=== PATIENT | female | born 1975 | race Caucasian/White ===

== ENCOUNTER 2021-09-20 05:55 | Day surgery (SDC) | payer MEDICAID ==
[~2021-09-20] VITALS: Ht 154.9 cm; Wt 58.3 kg
[2021-09-20 06:20] LABS: HCG,QUAL RESULT NEGATIVE (NEGATIVE)
[2021-09-20] MEDS ORDERED: MEPERIDINE 100 MG INJ. 100 MG/ML VIAL ONE (07:18)
[2021-09-20] MEDS ORDERED: MIDAZOLAM HCL 5 MG/5 ML VIAL ONE (07:18)
[2021-09-20 13:08] VITALS: BP_SYST 112
== END 2021-09-20 10:50 | disposition home or self-care (01) ==
LOC: SDS 05:55 → SMU 05:55 → SDS 10:50
PROVIDERS: ATTEND Internal Medicine
DX: R19.4 Change in bowel habit (principal); K58.1 Irritable bowel syndrome with constipation; D12.5 Benign neoplasm of sigmoid colon; K64.8 Other hemorrhoids; E78.00 Pure hypercholesterolemia, unspecified; N80.9 Endometriosis, unspecified; Z20.822 Contact with and (suspected) exposure to COVID-19; Z79.899 Other long term (current) drug therapy
CPT/HCPCS: 36415 ×2; 45380; 45385; 84703; 87426; 87635; 88305; 99152; 99153; G0378; J2175; J2250; U0003

== ENCOUNTER 2021-12-10 21:48 | Emergency (ER) | payer MEDICAID ==
[~2021-12-10] VITALS: Ht 154.9 cm; Wt 77.1 kg
[2021-12-10 22:02] VITALS: BP_SYST 115
[2021-12-10] MEDS ORDERED: ALBUTEROL SULFATE 0.083% 2.5 MG/3 ML VIAL.NEB INH ONE (22:15)
[2021-12-10 22:44] LABS: EOSINOPHILS # (AUTO) 0.3 K/uL (0.0-0.4); HEMOGLOBIN 14.8 g/dL (12.0-16.0)
[2021-12-10 22:51] LABS: BASOPHILS # (AUTO) 0.1 K/uL (0.0-0.2); BASOPHILS % (AUTO) 0.8 % (0.0-2.0); EOSINOPHILS % (AUTO) 2.4 % (0.0-4.0); HEMATOCRIT 41.3 % (36-48); LYMPHOCYTES # (AUTO) 4.2 K/uL (1.0-5.5); LYMPHOCYTES % (AUTO) 32.5 % (20.5-51.5); MEAN CORPUSCULAR HEMOGLOBIN 32 pg (27-31); MEAN CORPUSCULAR HGB CONC 36 % (32-36); MEAN CORPUSCULAR VOLUME 89 fL (79.0-98.0); MONOCYTES # (AUTO) 0.8 K/uL (0.0-1.0); MONOCYTES % (AUTO) 6.6 % (1.7-9.3); NEUTROPHILS # (AUTO) 7.5 K/uL (1.8-7.7); NEUTROPHILS % (AUTO) 57.7 % (40.0-70.0); PLATELET COUNT (AUTO) 312 K/uL (130-430); RED BLOOD CELL COUNT(AUTO) 4.65 MIL/uL (4.2-6.2); RED CELL DISTRIBUTION WIDTH 12.5 % (9.0-15.0); WHITE BLOOD COUNT (AUTO) 12.9 K/uL (4.8-10.8)
[2021-12-10 23:00] LABS: ANION GAP 14 (5-15); CALCIUM 9.2 mg/dL (8.4-11.0); CHLORIDE 105 mmol/L (98-107); CREATININE 0.93 mg/dL (0.55-1.30); GLUCOSE 95 mg/dL (70-99); POTASSIUM 3.8 mmol/L (3.5-5.1); SODIUM SERUM 138 mmol/L (136-145); UREA NITROGEN, BLOOD 15 mg/dL (8-21)
[2021-12-10 23:08] LABS: ALANINE AMINOTRANSFERASE 44 U/L (12-78); ALBUMIN 3.7 g/dL (3.4-4.8); ASPARTATE AMINOTRANSFERASE 23 U/L (10-37); TOTAL BILIRUBIN 0.3 mg/dL (0.0-1.0)
[2021-12-10 23:11] LABS: GFR AFRICAN AMERICAN 83 mL/min (>90)
[2021-12-10 23:42] LABS: INR 0.9 (0.8-1.2); PROTHROMBIN TIME 9.6 SECS (9.5-12.5)
[2021-12-11 00:57] VITALS: BP_SYST 138
[2021-12-11] MEDS ORDERED: DECADRON 4 MG TABLET PO ONE (01:15)
[2021-12-11] MEDS ORDERED: ALBMDI INH (01:21)
[2021-12-11] MEDS ORDERED: DEC4 PO (01:21)
== END 2021-12-11 01:33 | disposition home or self-care (01) ==
LOC: SED 21:48
DX: U07.1 COVID-19 (principal); J98.01 Acute bronchospasm; R05.9 Cough, unspecified; R50.9 Fever, unspecified; R06.02 Shortness of breath; Z79.899 Other long term (current) drug therapy
CPT/HCPCS: 80053; 83880; 85025; 85379; 85610; 85730; 84484; 36415; 93005; 71045; 71275; 76376; 94640; 99285; 87426; J7613; Q9967; J8540

== ENCOUNTER 2022-07-29 10:34 | Emergency (ER) | payer MEDICAID ==
[~2022-07-29] VITALS: Ht 162.6 cm; Wt 95.3 kg
[~2022-07-29 10:34] MED LIST: ALBMDI INH; DEC4 PO
[2022-07-29 10:47] VITALS: BP_SYST 131
--- NOTE | 2022-07-29 11:10 | NUR ---
Pt brought in by self from home. Chief complaint body aches, head congestion, non productive cough and head ache. Pt complains of chest wall pain and tightness in the chest. Pt is [id number], denies SOB at this time.
--- NOTE | 2022-07-29 11:22 | NUR ---
ER at bedside examining patient.
--- NOTE | 2022-07-29 11:27 | NUR ---
EMT bedside collecting nasal secretion specimen for analysis. Delivered to lab.
[2022-07-29] MEDS ORDERED: IPRATROPIUM/ALBUTEROL SULFATE 3 ML AMPUL.NEB (DUONEB) INH ONE (11:30)
[2022-07-29] MEDS ORDERED: BENZ100C92 PO (12:43)
[2022-07-29] MEDS ORDERED: IBUP-1969 PO (12:43)
[2022-07-29] MEDS ORDERED: ALBMDI INH (12:43)
--- NOTE | 2022-07-29 12:52 | NUR ---
Patient given written and verbal discharge instructions and verbalizes understanding. ER MD discussed with patient the results and treatment provided. Patient in stable condition. ID arm band removed. Rx of benzonatate, ibuprofen and ventolin given. Patient educated on pain management and to follow up with PMD. Opportunity for questions provided and answered. Medication side effect fact sheet provided.
[2022-07-29 12:56] VITALS: BP_SYST 131
== END 2022-07-29 12:52 | disposition home or self-care (01) ==
LOC: SED 10:34
DX: J06.9 Acute upper respiratory infection, unspecified (principal); R05.9 Cough, unspecified; R09.81 Nasal congestion; R06.02 Shortness of breath; Z79.899 Other long term (current) drug therapy; Z20.822 Contact with and (suspected) exposure to COVID-19
CPT/HCPCS: 36415; 71045; 94640; 94760; 99284

== ENCOUNTER 2022-11-01 18:12 | Emergency (ER) | payer MEDICAID ==
[~2022-11-01] VITALS: Ht 154.9 cm; Wt 81.2 kg
[~2022-11-01 18:12] MED LIST changes: +BENZ100C92 PO; +IBUP-1969 PO
[2022-11-01 18:31] VITALS: BP_SYST 123
[2022-11-01] MEDS ORDERED: TETRACAINE HCL/PF 0.5% OPHTHALMIC DROPS 4 ML OP ONE (19:30)
[2022-11-01] MEDS ORDERED: FLUORESCEIN SODIUM 1 MG OPHTHALMIC STRIP OP ONE (19:30)
[2022-11-01] MEDS ORDERED: ERYEYE EACH EYE (20:56)
[2022-11-01] MEDS ORDERED: IBUP-1969 PO (20:56)
[2022-11-01] MEDS ORDERED: ACET-2634 PO (20:56)
[2022-11-01] MEDS ORDERED: AUG875 PO (20:58)
[2022-11-01] MEDS ORDERED: OXYCODONE/ACETAMINOPHEN 5-325 TABLET PO ONE (21:00)
[2022-11-01 21:35] VITALS: BP_SYST 119
== END 2022-11-01 21:35 | disposition home or self-care (01) ==
LOC: SED 18:12
DX: H01.006 Unspecified blepharitis left eye, unspecified eyelid (principal); R51.9 Headache, unspecified; M79.10 Myalgia, unspecified site; Z79.899 Other long term (current) drug therapy; Z20.822 Contact with and (suspected) exposure to COVID-19
CPT/HCPCS: 36415; 99283